=== PATIENT | female | born 1975 | race Hispanic/Latino ===

== ENCOUNTER 2017-01-01 19:47 | Emergency (ER) | payer SELFPAY ==
[2017-01-01 20:09] LABS: Bilirubin Negative (Negative); Blood, Urine Trace (Negative); Glucose, Urine (Dipstick) Negative (Negative); Leukocyte Trace (Negative); Nitrite Negative (Negative); Protein, Urine (Dipstick) Negative (Neg-Trace)
[2017-01-01 20:10] LABS: Clarity Hazy (Clear)
[2017-01-01] MEDS ORDERED: Ketorolac Tromethamine 30 MG/ML VIAL ONE (20:15)
[2017-01-01] MEDS ORDERED: Ondansetron HCl/PF 4 MG/2 ML Vial ONE (20:16)
[2017-01-01 20:19] LABS: Bacteria/HPF 1+ HPF (None Seen); RBC/HPF 0-3 HPF (0-3); Squamous Epithelial 0-3 HPF (0-3); WBC/HPF 0-3 HPF (0-3)
[2017-01-01 20:20] LABS: Pregnancy Test - Urine (BHCG) Negative (Negative)
[2017-01-01 20:21] LABS: Pregu Control Background? CLEAR/WHITE (CLR/WHITE); Pregu Control Bar Appear? YES (CONTROL BAR)
[2017-01-01 20:27] LABS: #Basophils 0.1 thou/uL (0.0-0.2); #Eosinphils 0.1 thou/uL (0.0-0.7); #Lymphocytes 2.1 thou/uL (1.20-3.40); #Monocytes 0.6 thou/uL (0.11-0.59); #Neutrophils 10.4 thou/uL (1.40-6.50); %Basophils 0.6 % (0.0-1.0); %Eosinophils 0.7 % (0.0-10.0); %Lymphocytes 15.6 % (21.0-51.0); %Monocytes 4.9 % (0.0-10.0); %Neutrophils 78.3 % (42.0-75.0); Hemoglobin 14.2 g/dL (12.0-16.0); Mean Corpuscular HGB CONC 33.3 g/dL (32.0-36.0); Mean Corpuscular Hemoglobin 30.5 pg (27.0-31.0); Mean Corpuscular Volume 91.7 fl (81.0-99.0); Platelet Count 203 thou/uL (130-400); RBC Distribution Width 11.9 % (11.5-14.5); Red Blood Cell (RBC) Count 4.65 mill/uL (4.20-5.40); White Blood Cell (WBC) Count 13.2 thou/uL (4.8-10.8)
[2017-01-01 20:40] LABS: ALT (SGPT) 65 U/L (8-55); AST (SGOT) 30 U/L (5-34); Albumin 4.3 g/dL (3.5-5.0); Alkaline Phosphatase 120 U/L (40-150); Anion Gap 14 mmol/L (10-20); BUN (Urea Nitrogen) 15 mg/dL (7.0-18.7); Bilirubin, Total 0.9 mg/dL (0.2-1.2); Calc. Creatinine Clearance 0 mL/min (70-130); Calcium 9.6 mg/dL (7.8-10.44); Carbon Dioxide 22 mmol/L (22-29); Chloride 104 mmol/L (98-107); Estimated GFR-MDRD 59; Globulin 3.6 g/dL (2.4-3.5); Glucose 133 mg/dL (70-105); Potassium 4.1 mmol/L (3.5-5.1); Protein, Total 7.9 g/dL (6.0-8.3); Sodium 136 mmol/L (136-145)
--- NOTE | 2017-01-01 22:13 | CT ---
CT OF THE ABDOMEN AND PELVIS WITHOUT CONTRAST: Date: 01-01-[address] of the abdomen and pelvis was done using no oral or IV contrast for evaluation for right u pper quadrant pain. Axial slices were acquired and then coronal reconstructions were done. FINDINGS: There is a large 9 mm calculus in the proximal right ureter at the UPJ causing moderate to severe ri ght hydronephrosis. I do not see any other renal calculi at the moment. Additionally, the gallbladder is extremely large measuring about 15 cm in length. Gallstones are pre sent internally, though the wall does not see particularly thick and there is no pericholecystic str anding. A tiny calcification in the liver adjacent the gallbladder is probably of no current importa nce. The lung bases are clear. The liver, spleen, pancreas, adrenal glands, left kidney and abdominal aor ta were unremarkable within the limitations of a noncontrast study. The bowel shows no sign of obstruction, inflammatory change, or other acute findings. No free air or free fluid was seen. CT of the pelvis shows no pelvic masses, fluid collections, or inflammatory changes. IMPRESSION: 1. 9 mm proximal right ureteral calculus at the right UPJ causing moderate to severe right hydroneph rosis. 2. Extremely large gallbladder containing gallstones, but no clear wall thickening or stranding arou nd it. Findings discussed with Dr. Donis at 2040 on 01-01-17. POS: HOME
== END 2017-01-01 21:36 | disposition short-term general hospital (02) ==
LOC: BURERS 19:47
DX: N13.2 Hydronephrosis with renal and ureteral calculous obstruction (principal); K80.20 Calculus of gallbladder without cholecystitis without obstruction
CPT/HCPCS: 74176; 80053; 81003; 81015; 81025; 83690; 85025; 96374; 96375; J1885; J2405